=== PATIENT | male | born 1945 | race Caucasian/White ===

== ENCOUNTER 2024-02-02 10:26 | Observation (INO) ==
[2024-02-02] MEDS: Ondansetron 4 mg VIAL 2 MG/ML 2 ml VIAL IV ONE (12:38)
[2024-02-02] MEDS: NS 0.9% 1000 ml BAG 1,000 ML IV ONE (12:38)
[2024-02-02 12:53] LABS: ABS Lymphocytes 0.9 10^3/uL (1.0-4.8); ABS Monocytes 0.6 10^3/uL (0.0-1.1); ABS Neutrophils 2.8 10^3/uL (1.5-7.6); Eosinophil % 0.3 %; Hematocrit 32.7 % (38-53); Hemoglobin 11.1 g/dL (13.2-16.3); Lymphocyte % 20.8 %; Mean Corpuscular Hemoglobin 31.7 pg (27-33); Mean Corpuscular Hgb Conc 33.9 g/dL (31-36); Mean Corpuscular Volume 93.4 fL (80-97); Mean Platelet Volume 8.3 fL (7.5-11.2); Nucleated Red Blood Cells % 0.1 %/100WBC (0.0-0.8); Platelet Count 183 10^3/uL (150-450); Red Blood Count 3.51 10^6/uL (4.06-5.63); Red Cell Distribution Width 15.9 % (12-17); White Blood Count 4.3 10^3/uL (3.6-10.2)
[2024-02-02 13:48] LABS: Albumin 3.3 g/dL (3.2-5.2); Albumin/Globulin Ratio 1.1 (1-3); Calcium 8.3 mg/dL (8.6-10.3); Creatinine, Serum 1.58 mg/dL (0.67-1.17); Globulin 2.9 g/dL (2-4); Magnesium 2.1 mg/dL (1.9-2.7); Potassium 3.9 mmol/L (3.5-5.0); Total Bilirubin 0.4 mg/dL (0.2-1.0); Total Protein 6.2 g/dL (6.4-8.9); eGFR CKD-EPI 44.5 (>60)
[2024-02-02] MEDS: NS 0.9% 1000 ml BAG 1,000 ML IV SCH (15:15)
[2024-02-02] MEDS: Enoxaparin 40 MG/0.4 ML SYR SUBCUT SCH (17:14)
[2024-02-02] MEDS: Metoclopramide 5 MG/ML VIAL (10 mg) IV SLOW PU ONE (17:16)
[2024-02-03] MEDS: Ondansetron 4 mg VIAL 2 MG/ML 2 ml VIAL IV PRN (00:59)
[2024-02-03 11:22] LABS: Calcium 7.2 mg/dL (8.6-10.3); Creatinine, Serum 1.34 mg/dL (0.67-1.17); Magnesium 1.9 mg/dL (1.9-2.7); Potassium 3.5 mmol/L (3.5-5.0); eGFR CKD-EPI 54.2 (>60)
[2024-02-03] MEDS: KCL 20 MEQ/100 ML IVPREMIX 20 MEQ/100 ML BAG IV SCH (12:54)
[2024-02-03] MEDS: Calcium Carb (TUMS) 500 mg CHEW TAB PO PRN (22:04)
[2024-02-03] MEDS: Lactated Ringers 1000 ml BAG 1,000 ML IV SCH (22:04)
[2024-02-04 08:07] LABS: Hematocrit 27.8 % (38-53); Hemoglobin 9.4 g/dL (13.2-16.3); Mean Corpuscular Hemoglobin 31.8 pg (27-33); Mean Corpuscular Hgb Conc 33.9 g/dL (31-36); Mean Corpuscular Volume 93.7 fL (80-97); Mean Platelet Volume 8.7 fL (7.5-11.2); Platelet Count 177 10^3/uL (150-450); Red Blood Count 2.97 10^6/uL (4.06-5.63); Red Cell Distribution Width 15.5 % (12-17); White Blood Count 4.8 10^3/uL (3.6-10.2)
[2024-02-04 08:44] LABS: Calcium 7.7 mg/dL (8.6-10.3); Creatinine, Serum 1.23 mg/dL (0.67-1.17); Magnesium 1.9 mg/dL (1.9-2.7); Potassium 3.5 mmol/L (3.5-5.0); eGFR CKD-EPI 60.1 (>60)
[2024-02-04 14:24] VITALS: BP 138/82
== END 2024-02-04 18:00 | disposition home or self-care (01) ==
LOC: EDHOLD 10:26 → ED 10:26 → MEDTELE 20:29
PROVIDERS: ADMIT Internal Medicine; ATTEND Internal Medicine